=== PATIENT | male | born 2000 | race Two or more races ===

== ENCOUNTER 2023-06-08 12:26 | Emergency (ER) | payer OTHER ==
[~2023-06-08] VITALS: Ht 180.3 cm; Wt 68.0 kg
== END 2023-06-08 15:35 | disposition home or self-care (01) ==
LOC: ER 12:26
DX: M54.50 Low back pain, unspecified (principal); W18.39XA Other fall on same level, initial encounter; Y93.B9 Activity, other involving muscle strengthening exercises; Y92.89 Other specified places as the place of occurrence of the external cause; Y99.1 Military activity
CPT/HCPCS: 72100; 96372; 99284; J1885; J2360